=== PATIENT | male | born 1995 | race Two or more races ===

== ENCOUNTER 2021-11-14 16:10 | Emergency (ER) | payer OTHER ==
[~2021-11-14] VITALS: Ht 170.2 cm; Wt 61.2 kg
== END 2021-11-14 17:56 | disposition home or self-care (01) ==
LOC: ER 16:10
DX: S09.90XA Unspecified injury of head, initial encounter (principal); W19.XXXA Unspecified fall, initial encounter; Y92.099 Unspecified place in other non-institutional residence as the place of occurrence of the external cause

== ENCOUNTER 2022-11-26 07:10 | Emergency (ER) | payer OTHER ==
[~2022-11-26] VITALS: Ht 170.2 cm; Wt 59.0 kg
[2022-11-26] MEDS ORDERED: LEVSIN/SL0.125 MG SL (14:05)
[2022-11-26] MEDS ORDERED: PEPCID AC20 MG PO (14:05)
== END 2022-11-26 14:13 | disposition home or self-care (01) ==
LOC: ER 07:10
DX: R10.13 Epigastric pain (principal); R10.33 Periumbilical pain; Z88.0 Allergy status to penicillin; Z20.822 Contact with and (suspected) exposure to COVID-19

== ENCOUNTER 2023-03-04 15:15 | Emergency (ER) | payer OTHER ==
[~2023-03-04] VITALS: Ht 170.2 cm; Wt 59.0 kg
[~2023-03-04 15:15] MED LIST: LEVSIN/SL0.125 MG SL; PEPCID AC20 MG PO
[2023-03-04 17:25] LABS: HEMOGLOBIN 12.7 g/dL (13-16.00); MEAN CELL VOLUME 92.7 fL (80.0-100.00); MEAN CORPUSCULAR HEMOGLOBIN 31.7 pg (27.00-32.0); MEAN CORPUSCULAR HGB CONC 34.2 g/dl (32.0-36.0); PLATELET COUNT 223 K/uL (150-450); RED BLOOD COUNT 3.99 M/uL (4.00-6.00); RED CELL DISTRIBUTION WIDTH 13.1 % (11.5-14.5)
== END 2023-03-04 18:07 | disposition home or self-care (01) ==
LOC: ER 15:15
PROVIDERS: General Practice
DX: J06.9 Acute upper respiratory infection, unspecified (principal); Z88.0 Allergy status to penicillin; Z20.822 Contact with and (suspected) exposure to COVID-19

== ENCOUNTER 2023-03-06 01:03 | Emergency (ER) | payer OTHER ==
[~2023-03-06] VITALS: Ht 170.2 cm; Wt 59.0 kg
[2023-03-06 04:40] LABS: HEMATOCRIT 34.9 % (39.0-48.0); HEMOGLOBIN 12.3 g/dL (13-16.00); MEAN CELL VOLUME 91.6 fL (80.0-100.00); MEAN CORPUSCULAR HEMOGLOBIN 32.3 pg (27.00-32.0); MEAN CORPUSCULAR HGB CONC 35.3 g/dl (32.0-36.0); PLATELET COUNT 184 K/uL (150-450); RED BLOOD COUNT 3.81 M/uL (4.00-6.00)
[2023-03-06 04:43] LABS: URINE APPEARANCE Clear; URINE BILIRRUBIN Negative (NEGATIVE); URINE BLOOD Negative; URINE COLOR Yellow; URINE GLUCOSE Negative (NEGATIVE); URINE LEUKOCYTE Negative; URINE NITRATE Negative; URINE PROTEIN 30 (NEGATIVE)
[2023-03-06 04:44] LABS: URINE BACTERIA 11.3 uL (0.0-1933); URINE EPITHELIAL CELLS 5.7 uL (0.0-38.8); URINE RBC 4.7 uL (0.0-20.8); URINE WBC 8.1 uL (0.0-23.2)
[2023-03-06 04:59] LABS: CALCIUM 8.9 mg/dL (8.5-10.1); CREATININE SERUM 0.96 mg/dL (0.70-1.30); GFR 95.44; POTASSIUM 4.15 mEq/L (3.5-5.1)
[2023-03-06] MEDS ORDERED: DOLOGESIC 500-1 EACH PO (07:29)
== END 2023-03-06 07:38 ==
LOC: ER 01:03
PROVIDERS: General Practice
DX: J10.1 Influenza due to other identified influenza virus with other respiratory manifestations (principal); Z88.0 Allergy status to penicillin; Z20.822 Contact with and (suspected) exposure to COVID-19